=== PATIENT | male | born 1965 | race Caucasian/White ===

== ENCOUNTER 2020-09-10 09:25 | Day surgery (SDC) | payer OTHER ==
[2020-09-10] MEDS ORDERED: fentaNYL 250 MCG/5 ML VIAL IVP ONE (09:26)
[2020-09-10] MEDS ORDERED: MIDAZOLAM 2 MG/2 ML VIAL IVP ONE (09:26)
[2020-09-10] MEDS: LACTATED RINGERS 1,000 ML IV ONE ×2 (09:41→10:59)
[2020-09-10 11:31] VITALS: BP 97/70
== END 2020-09-10 09:26 | disposition home or self-care (01) ==
LOC: SDS 09:25
PROVIDERS: ATTEND Surgery
DX: Z12.11 Encounter for screening for malignant neoplasm of colon (principal); K64.8 Other hemorrhoids; F17.210 Nicotine dependence, cigarettes, uncomplicated; I10 Essential (primary) hypertension
CPT/HCPCS: 45378; J3010; J7120

== ENCOUNTER 2022-12-06 11:13 | Outpatient (CLI) | payer OTHER ==
--- NOTE | 2022-12-06 12:38 | XRAY Report ---
PROCEDURE: Foot 3 View LT INDICATIONS: LEFT FOOT PAIN TECHNIQUE: 3 views of the foot were acquired. COMPARISON: None FINDINGS: Bones: No fractures or dislocations. No suspicious bony lesions. Soft tissues: No tibiotalar joint effusion. Achilles tendon appears normal. No radiopaque foreign body. IMPRESSION: No significant osseous abnormality. Reviewed by: Emanuel Fisher MD on 12/06/2022 12:36 PM [facility] Approved by: Emanuel Fisher MD on 12/06/2022 12:36 PM [facility] Station ID: [id number]
== END 2022-12-06 11:14 | disposition home or self-care (01) ==
LOC: DI 11:13
PROVIDERS: ATTEND Physician Assistant
DX: M79.672 Pain in left foot (principal)

== ENCOUNTER 2023-06-21 07:07 | Outpatient (CLI) | payer OTHER ==
--- NOTE | 2023-06-21 14:46 | MRI Report ---
PROCEDURE: ANKLE WO - LT INDICATIONS: LEFT CALCANEAL PAIN TECHNIQUE: Noncontrast coronal and sagittal T1 spin echo and STIR; axial T1 spin echo and T2 fast spin echo with fat saturation through the left ankle. COMPARISON: None. FINDINGS: Image quality: Good Bones and Joints Tibiotalar joint: Mild degenerative changes and effusion. More focal edema is seen at the posterior j oint space. Midfoot and hindfoot: Mild midfoot degenerative changes. Talar dome: No osteochondral lesions. Medial structures Flexor tendons: PT, FDL, and FHL are intact. Mild thickening of the posterior tibialis could be from prior injury. There is also trace fluid/tenosynovitis in the mid posterior tibialis tendon. Deltoid ligaments: Visualized deep and superficial layers are intact. Spring complex: Intact. Sinus tarsi: Preserved fat signal. Lateral structures Ligaments: ATFL, CF, and PTFL are intact. Syndesmosis: Tibiofibular ligaments are intact. Syndesmosis is not pathologically widened (2mm). Peroneus tendons: Mild fluid surrounding the peroneus brevis. Anterior structures Extensor tendons: Suspected ganglion cyst adjacent to the extensor digitorum. Plantar and posterior structures Achilles: Intact. Plantar fascia: Moderate edema of the proximal plantar fascia, extending to the underlying calcaneus, with partial tear. There is thickening of the medial band. Muscles: No pathologic edema or atrophy. Other tissues: No abscess or measurable mass. IMPRESSION: Moderate plantar fasciitis, with edema extending into the calcaneus. Partial tear of the medial band, with thickening. Scattered degenerative changes and low-grade tenosynovitis. Reviewed by: Preet Ch MD on 06/21/2023 2:45 PM PDT Approved by: Preet Ch MD on 06/21/2023 2:45 PM PDT Station ID: [id number]
== END 2023-06-21 07:08 | disposition home or self-care (01) ==
LOC: DI 07:07
PROVIDERS: ATTEND Podiatrist
DX: M72.2 Plantar fascial fibromatosis (principal); M19.072 Primary osteoarthritis, left ankle and foot; M65.9 Synovitis and tenosynovitis, unspecified